=== PATIENT | male | born 1945 | race Two or more races ===

== ENCOUNTER → 2019-04-11 13:47 | Outpatient (CLI) | payer OTHER | END | disposition home or self-care (01) | LOC: LAB 13:47 | DX: R97.20 Elevated prostate specific antigen [PSA] (principal) ==

== ENCOUNTER 2019-07-07 07:36 | Outpatient (CLI) | payer OTHER | END 2019-07-07 07:42 | disposition home or self-care (01) | LOC: SONOGRAMA 07:36 | DX: C61 Malignant neoplasm of prostate (principal); R97.20 Elevated prostate specific antigen [PSA] ==

== ENCOUNTER 2019-07-26 08:29 | Outpatient (CLI) | payer OTHER | END 2019-07-26 09:00 | disposition home or self-care (01) | LOC: NUCLEAR 08:29 | DX: I65.23 Occlusion and stenosis of bilateral carotid arteries (principal) ==

== ENCOUNTER 2019-08-02 07:18 | Outpatient (CLI) | payer OTHER | END 2019-08-02 07:35 | disposition home or self-care (01) | LOC: NUCLEAR 07:18 | DX: C61 Malignant neoplasm of prostate (principal); R31.21 Asymptomatic microscopic hematuria; F52.21 Male erectile disorder | CPT/HCPCS: 78803; A9503 ==